=== PATIENT | male | born 1990 | race Caucasian/White ===

== ENCOUNTER 2020-09-08 07:30 | Emergency (ER) | payer BC, SELFPAY ==
--- NOTE | ~2020-09-08 | XR_ITS ---
EXAMINATION: XR chest 1V portable INDICATION: Cough and congestion, body aches TECHNIQUE: Portable AP chest at 0827 hours COMPARISON: None available FINDINGS: There are diffuse patchy opacities throughout all lung zones. No pleural effusion or pneumo thorax is identified. The cardiomediastinal silhouette is normal. The visualized osseous structures a re unremarkable. IMPRESSION: 1. Diffuse lung disease, consistent with pneumonia/or pulmonary edema. Reviewed, dictated and finalized at location B.
[2020-09-08 07:35] VITALS: BP 133/78; PULSE 70; PULSE 75; RESP 20; TEMP 36.6; O2SAT 97
[2020-09-08 08:20] LABS: Alveolar/Arterial O2 Gradient 46.6 mmHg; Fractional Inspired Oxygen 21 %; HCO3 ABG 24.6 mEq/l (22.0-26.0); Oxygen Content ABG 19.8 %vol (16.0-22.0); Oxygen Saturation ABG 94.2 % (95.0-100.0); Oxyhemoglobin 92.9 % THb (90.0-100.0); PCO2 ABG 32.7 mmHg (35.0-45.0); PO2 FiO2 Ratio Arterial Blood 3.05 %; Total Hemoglobin 15.2 g/dL (12.0-18.0); pH ABG 7.494 (7.350-7.450)
[2020-09-08 08:21] LABS: Device ROOM AIR; Modified Allen's Test Pass; Site Drawn LEFT RADIAL
[2020-09-08 09:01] VITALS: BP 126/66; PULSE 78; RESP 24; O2SAT 96
[2020-09-08 09:11] LABS: Basophils Percent Auto 0.3 % (0.2-1.2); Hemoglobin 14.3 g/dL (14.0-18.0); Immature Granulocyte Absolute 0.02 K/mm3 (0.00-0.031); Immature Granulocyte Percent A 0.6 % (0-0.5); Lymphocytes Absolute Auto 0.91 K/mm3 (0.9-3.2); Lymphocytes Percent Auto 26.5 % (18.3-44.2); Mean Corpuscular Hemoglobin 27.9 pg (26-34); Mean Platelet Volume 10.5 fl (7.4-10.4); Monocytes Absolute Auto 0.4 K/mm3 (0.1-0.6); Monocytes Percent Auto 12.8 % (2.6-8.5); Neutrophils Absolute Auto 2.1 K/mm3 (1.3-6.7); Neutrophils Percent Auto 59.8 % (45.5-73.1); Platelet Count Result 176 k/mm3 (150-375); Red Blood Count 5.12 M/mm3 (4.6-6.20); Red Cell Distribution Width 12.6 % (11.5-14.5); White Blood Count 3.4 K/mm3 (4.5-10.0)
[2020-09-08 09:21] LABS: Prothrombin Time 12.8 Seconds (11.1-14.7)
[2020-09-08 09:22] LABS: Alanine Aminotransferase 26 U/L (4-50); Albumin Level 4.3 g/dL (3.5-5.1); Alkaline Phosphatase 63 U/L (38-126); Anion Gap 9 mmol/L (8-16); Aspartate Amino Transferase 38 U/L (17-59); Bilirubin,Total 0.6 mg/dL (0.2-1.3); Blood Urea Nitrogen 9 mg/dL (9-20); Calcium 8.5 mg/dL (8.4-10.2); Carbon Dioxide 27 mmol/L (22-30); Chloride 99 mmol/L (98-107); Estimated CRCL calculation 108 ml/min; Estimated Glomerular Filt Rate > 60; Glucose 106 mg/dL (65-110); Partial Thromboplastin Time 33.2 SECONDS (22.3-36.8); Potassium 4.3 mmol/L (3.4-5.0); Sodium 135 mmol/L (137-145)
[2020-09-08 09:24] LABS: D Dimer 0.47 ug/mL (<0.48)
[2020-09-08 10:01] VITALS: BP 124/68; PULSE 73; RESP 26; O2SAT 97
--- NOTE | 2020-09-08 11:58 | ED.SOB ---
HPI - SOB/Dyspnea General Chief Complaint: Shortness of Breath/Dyspnea Stated Complaint: sob Time Seen by Provider: 09/08/20 07:40 Source: patient and RN notes reviewed Limitations: no limitations History of Present Illness HPI Narrative: Patient is 30 years old white male presents with cough and symptoms, coughing, congestion, body aches, loss of taste and smell and a feeling short of breath with activity. Patient was tested positive for Covid on September 02. Patient developed the above symptoms on 3 days prior to the Covid test. Patient does not smoke, healthy otherwise, does not take medicine at home. Related Data Home Medications Medication Instructions Recorded Confirmed No Home Medications 09/08/20 09/08/20 Allergies Allergy/AdvReac Type Severity Reaction Status Date / Time No Known Allergies Allergy Verified 09/08/20 08:01 Review of Systems Review of Systems: Narrative: CONSTITUTIONAL: Denies fever, chills, or sweats. EYES: Denies visual changes, redness, or discharge. ENT: Denies rhinorrhea, congestion, sore throat, or otalgia. CARDIOVASCULAR: Denies chest pain, palpitations, or edema. RESPIRATORY: Denies cough or dyspnea. GASTROINTESTINAL: Denies abdominal pain, nausea, vomiting, or diarrhea. GENITOURINARY: Denies dysuria or hematuria. SKIN: Denies rash or itching. MUSCULOSKELETAL: Denies back pain, joint pain, or myalgia. NEUROLOGIC: Denies headache, numbness, or weakness. PSYCHIATRIC: Denies anxiety or depression. Exam Narrative: Exam Narrative: General appearance: Well-developed, well-nourished, does not look in pain or respiratory distress Skin: Normal color Head: Normocephalic, nontraumatic Eyes: Clear conjunctiva ENT: Oropharynx normal, ears normal, nose normal Neck: Supple, nontender Chest and respiratory: Airway patent, no respiratory distress, no accessory muscle use Heart: Regular rate/rhythm Abdomen: Soft, nontender, no organomegaly, quiet bowel sounds Vascular: Normal peripheral pulses, normal capillary refill. Musculoskeletal: Normal range of motion, nontender back Neurologic: Alert and oriented ?3, [employer] is normal as tested, no gross motor deficit Course Course Emergency Course: Stable Consultations Consultation #1: DR FALK, our hospitalist on-call Suggested that patient to go home and to monitor himself and to come back if his symptoms are worsening. Currently he is not qualified for inpatient or outpatient treatment. Date: 09/08/20 Time: 12:12 Vital Signs Vital signs: Vital Signs Temperature 36.6 C 09/08/20 07:35 Pulse Rate 70 09/08/20 07:35 Respiratory Rate 20 09/08/20 07:35 Blood Pressure 133/78 09/08/20 07:35 Pulse Oximetry 97 09/08/20 07:35 Temperature 36.6 C 09/08/20 07:35 Pulse Rate 73 09/08/20 10:01 Respiratory Rate 26 H 09/08/20 10:01 Blood Pressure 124/68 09/08/20 10:01 Pulse Oximetry 97 09/08/20 10:01 MDM - SOB/Dyspnea MDM Narrative Medical decision making narrative: Patient presents to the ED with cough symptoms. My plan to get labs, D-dimer, ABG on room air, chest x-ray. Patient is healthy otherwise, does not take medicine at home, saturation on room air by blood gas 94.2. Patient is not a candidate for remdesivir or antibiotic treatment at this time. Patient is able to self monitor himself at home, also able to be isolated. Patient will be advised to come back to the emergency room if his breathing or his symptoms are getting worse. Differential Diagnosis Differential diagnosis: Likely pulmonary embolism and other (Respiratory failure, Covid pneumonia) Lab Data Result diagrams: 09/08/20 09:04 09/08/20 09:04 Labs: Lab Result
[2020-09-08] MEDS: KETOROLAC 30 MG/ML VIAL (*BKC) IV PUSH (12:01)
[2020-09-08 12:17] VITALS: BP 122/80; PULSE 78; RESP 18; O2SAT 96
== END 2020-09-08 12:18 | disposition home or self-care (01) ==
PROVIDERS: Emergency Provider Emergency Medicine
DX: U07.1 COVID-19 (principal); J12.82 Pneumonia due to coronavirus disease 2019
CPT/HCPCS: 36415; 36600; 71045; 80053; 82805; 85025; 85380; 85610; 85730; 96374; 99284; J1885